=== PATIENT | male | born 1990 | race Hispanic/Latino ===

== ENCOUNTER 2019-06-06 18:28 | Inpatient (IN) | payer OTHER ==
[~2019-06-06] VITALS: Ht 172.7 cm; Wt 89.8 kg
[2019-06-06 19:22] LABS: BASOPHILS % (AUTO) 0.3 % (0.0-5.0); LYMPHOCYTES % (AUTO) 4.6 % (21.0-51.0); MEAN CORPUSCULAR HEMOGLOBIN 29.8 pg (27.0-33.0); MEAN CORPUSCULAR HGB CONC 34.6 g/dL (32.0-36.0); MEAN CORPUSCULAR VOLUME 86.2 fL (79-99); NEUTROPHILS % (AUTO) 87.5 % (40.0-77.0); PLATELET COUNT (AUTO) 246 K/uL (130-400); RED CELL DISTRIBUTION WIDTH 11.9 % (11.0-15.5)
[2019-06-06 19:27] LABS: APPEARANCE,URINE Clear (CLEAR); BILIRUBIN,URINE Small (NEGATIVE); COLOR,URINE Dark Yellow (YELLOW); GLUCOSE, URINE (UA) Negative (NEGATIVE); KETONES,URINE >=160 mg/dL (NEGATIVE); LEUKOCYTE ESTERASE ,URINE Trace (NEGATIVE); NITRATE,URINE Negative (NEGATIVE); OCCULT BLOOD,URINE Negative (NEGATIVE); PROTEIN,URINE POS 1+ mg/dL (NEGATIVE)
[2019-06-06 19:34] LABS: CARBON DIOXIDE 23 mmol/L (21-32); CHLORIDE 94 mmol/L (101-111); CREATININE 1.3 mg/dL (0.5-1.5); GLOMERULAR FILTR. RATE CALC 70 mL/min (>60); GLUCOSE,RANDOM 109 mg/dL (70-105); POTASSIUM 3.2 mmol/L (3.5-5.1); SODIUM SERUM 133 mmol/L (136-145); UREA NITROGEN, BLOOD 14 mg/dL (7-18)
[2019-06-06 19:42] LABS: INR 1.03 (0.85-1.15); PARTIAL THROMBOPLASTIN TIME 41.9 SEC (26.3-35.5); PROTHROMBIN TIME 11.1 SEC (9.6-11.6)
[2019-06-06] MEDS ORDERED: IOHEXOL-350 75 ML VIAL IV ONE (19:42)
[2019-06-06 19:44] LABS: RBC,URINE 0-1 /HPF (0-1)
[2019-06-06 19:45] LABS: BACTERIA,URINE Rare /HPF (None Seen); SQUAMOUS EPITHELIAL CELL,UR None Seen /HPF (0-2)
[2019-06-06 19:45] LABS: RAPID GROUP A STREP NEGATIVE (NEGATIVE)
[2019-06-06 19:55] LABS: ALANINE AMINOTRANSFERASE 25 U/L (12-78); ALBUMIN 4.1 g/dL (3.5-5.0); ASPARTATE AMINOTRANSFERASE 20 U/L (10-37); BILIRUBIN,TOTAL 0.9 mg/dL (0.2-1.0); CREATINE KINASE, TOTAL 46 U/L (21-232); MYOGLOBIN 24 ng/mL (10-92); TOTAL PROTEIN, SERUM 9.4 g/dL (6.0-8.3); TROPONIN I < 0.04 ng/mL (0.00-0.06)
[2019-06-06] MEDS ORDERED: ZOSYN 3.375GM+NS 50ML 50 ML IV ONE (19:58)
[2019-06-06] MEDS ORDERED: ACETAMINOPHEN 325 MG TAB ONE (19:59)
[2019-06-06] MEDS ORDERED: POTASSIUM BICARB/CIT AC 25 MEQ TABLET.EFF ONE (20:00)
[2019-06-06] MEDS ORDERED: ONDANSETRON HCL 4 MG/2 ML VIAL ONE (20:00)
[2019-06-06] MEDS ORDERED: NITROGLYCERIN 0.4 MG SL TAB SL PRN (20:30)
[2019-06-06] MEDS ORDERED: DIPHENHYDRAMINE HCL 25 MG CAPSULE PO PRN (20:30)
[2019-06-06] MEDS ORDERED: ACETAMINOPHEN 325 MG TAB PO PRN (20:30)
[2019-06-06] MEDS ORDERED: SODIUM CHLORIDE 0.9% 1000ML 1,000 ML IV SCH (20:30)
[2019-06-06] MEDS ORDERED: POTASSIUM CHLORIDE 20MEQ/100ML 100 ML IV PRN (20:45)
[2019-06-06] MEDS ORDERED: POTASSIUM CHLORIDE 20 MEQ ERTAB PO PRN (20:45)
[2019-06-06] MEDS ORDERED: MAGNESIUM 2GM PREMIX 50ML 50 ML IV PRN (20:45)
[2019-06-06] MEDS ORDERED: LIDOCAINE HCL-MPF 1% 2ML VIAL IJ PRN (20:45)
[2019-06-06] MEDS ORDERED: POTASSIUM CHLORIDE 10% ELIXIR 20 MEQ/15 ML UDCUP PO PRN (20:45)
[2019-06-06] MEDS ORDERED: FAMOTIDINE/PF 20 MG/2 ML VIAL IV ONE (21:09)
[2019-06-06] MEDS ORDERED: IBUPROFEN 800 MG TAB PO SCH (22:00)
[2019-06-06] MEDS ORDERED: IBUPROFEN 800 MG TAB ONE (22:20)
[2019-06-06 23:06] LABS: AMPHET/METH SCREEN,URINE NEGATIVE (NEGATIVE); BARBITURATE SCREEN, URINE NEGATIVE (NEGATIVE); BENZODIAZEPINES SCREEN,URINE NEGATIVE (NEGATIVE); CANNABINOID SCREEN,URINE POSITIVE (NEGATIVE); COCAINE SCREEN,URINE POSITIVE (NEGATIVE); OPIATE SCREEN,URINE NEGATIVE (NEGATIVE); PHENCYCLIDINE SCREEN,URINE NEGATIVE (NEGATIVE)
[2019-06-06] MEDS ORDERED: SODIUM CHLORIDE 0.9% 1000ML 1,000 ML IV ONE (23:59)
[2019-06-07] VITALS (7 sets, daily range): BP systolic 125–153; BP diastolic 71–89
[2019-06-07] MEDS ORDERED: IPRATROPIUM/ALBUTEROL SULFATE 3 ML SOLUTION IH PRN (01:15)
[2019-06-07] MEDS: SODIUM CHLORIDE 0.9% 1000ML 1,000 ML IV SCH ×2 (01:30→05:44)
[2019-06-07] MEDS: FAMOTIDINE/PF 20 MG/2 ML VIAL IV SCH ×3 (01:30→20:32)
[2019-06-07] MEDS ORDERED: SODIUM CHLORIDE 3% FOR INHALATION 4 ML/AMP VIAL.NEB IH ONE ×2 (01:35→06:27)
[2019-06-07] MEDS: AZITHROMYCIN 500MG+NS 250ML 250 ML IV SCH (03:00)
[2019-06-07] MEDS: ONDANSETRON HCL 4 MG/2 ML VIAL IV PRN ×3 (03:00→14:47)
[2019-06-07] MEDS: ACETAMINOPHEN 325 MG TAB PO PRN ×2 (03:35→20:43)
[2019-06-07] MEDS ORDERED: KETOROLAC TROMETHAMINE 15MG/ML ONE (03:59)
[2019-06-07] MEDS: KETOROLAC TROMETHAMINE 15MG/ML IV SCH ×2 (04:01→14:52)
[2019-06-07] MEDS: PROMETHAZINE HCL 25 MG/ML 1ML AMPULE IM SCH (04:01)
[2019-06-07] MEDS: ZOSYN 3.375GM+NS 50ML 50 ML IV SCH ×4 (05:00→20:33)
[2019-06-07] MEDS ORDERED: IBUPROFEN 600 MG TABLET PO PRN (05:30)
[2019-06-07 06:31] LABS: HEMATOCRIT 44.5 % (42-54); MEAN CORPUSCULAR HEMOGLOBIN 29.9 pg (27.0-33.0); MEAN CORPUSCULAR HGB CONC 33.7 g/dL (32.0-36.0); MEAN CORPUSCULAR VOLUME 88.6 fL (79-99); PLATELET COUNT (AUTO) 177 K/uL (130-400); RED BLOOD CELL COUNT(AUTO) 5.02 MIL/uL (4.50-6.20); RED CELL DISTRIBUTION WIDTH 12.1 % (11.0-15.5); WHITE BLOOD COUNT (AUTO) 18.1 K/uL (4.8-10.8)
[2019-06-07 06:46] LABS: ALBUMIN 3.1 g/dL (3.5-5.0); BILIRUBIN,TOTAL 0.6 mg/dL (0.2-1.0); CREATININE 1.1 mg/dL (0.5-1.5); MAGNESIUM 1.7 mg/dL (1.80-2.40); POTASSIUM 3.5 mmol/L (3.5-5.1); TOTAL PROTEIN, SERUM 7.3 g/dL (6.0-8.3)
[2019-06-07 08:28] LABS: BAND NEUTROPHILS % (MANUAL) 11 % (0-2); BASOPHILS % (MANUAL) 1 % (0-2); LYMPHOCYTES % (MANUAL) 4 % (22-44); MAN.DIFF COMMENT-IMPRESSION MANUAL DIFFERENTIAL; MONOCYTES % (MANUAL) 8 % (2-9); PLATELET MORPHOLOGY COMMENT ADEQUATE; REACTIVE LYMPHOCYTES 1 % (0-0); SEGMENTED NEUTROPHILS % 75 % (40-70)
[2019-06-07] MEDS: ENOXAPARIN SODIUM 30 MG/0.3 ML SQ SCH (08:59)
--- NOTE | 2019-06-07 12:37 | NUR ---
DCP CM met with pt discussed dc plans. Pt is independent prior to admission, lives at home w/family members. Denies any equipments/services. Feels safe to go back home, still drives, family able to assist with transportation and needs as necessary. DC plan to home once stable. CM to cont to follow up. Addendum: 06/07/19 at 1238 by SOL GREGG LVN CM Amended: Links added.
[2019-06-08] MEDS: AZITHROMYCIN 500MG+NS 250ML 250 ML IV SCH (00:58)
[2019-06-08] MEDS: KETOROLAC TROMETHAMINE 15MG/ML IV SCH (00:59)
[2019-06-08 03:40] VITALS: BP 120/70
[2019-06-08] MEDS: PROMETHAZINE HCL 25 MG/ML 1ML AMPULE IM SCH (04:00)
[2019-06-08 05:09] LABS: BASOPHILS % (AUTO) 0.2 % (0.0-5.0); EOSINOPHILS % (AUTO) 0.2 % (0.0-8.0); HEMATOCRIT 42.7 % (42-54); LYMPHOCYTES % (AUTO) 13.6 % (21.0-51.0); MEAN CORPUSCULAR HEMOGLOBIN 29.7 pg (27.0-33.0); MEAN CORPUSCULAR VOLUME 90.1 fL (79-99); MONOCYTES % (AUTO) 8.7 % (3.0-13.0); NEUTROPHILS % (AUTO) 76.8 % (40.0-77.0); PLATELET COUNT (AUTO) 161 K/uL (130-400); RED BLOOD CELL COUNT(AUTO) 4.74 MIL/uL (4.50-6.20); WHITE BLOOD COUNT (AUTO) 13.2 K/uL (4.8-10.8)
[2019-06-08 05:36] LABS: ALBUMIN 2.7 g/dL (3.5-5.0); BILIRUBIN,TOTAL 0.4 mg/dL (0.2-1.0); POTASSIUM 3.6 mmol/L (3.5-5.1); TOTAL PROTEIN, SERUM 6.9 g/dL (6.0-8.3)
[2019-06-08] MEDS: SODIUM CHLORIDE 0.9% 1000ML 1,000 ML IV SCH ×3 (05:40→20:16)
[2019-06-08] MEDS: ZOSYN 3.375GM+NS 50ML 50 ML IV SCH ×3 (05:40→20:04)
[2019-06-08] MEDS: KETOROLAC TROMETHAMINE 15MG/ML IV PRN ×2 (07:26→14:54)
[2019-06-08] MEDS: ONDANSETRON HCL 4 MG/2 ML VIAL IV PRN (07:26)
[2019-06-08 07:28] VITALS: BP 132/91
[2019-06-08] MEDS: ENOXAPARIN SODIUM 30 MG/0.3 ML SQ SCH (09:16)
[2019-06-08] MEDS: FAMOTIDINE/PF 20 MG/2 ML VIAL IV SCH ×2 (09:16→20:04)
[2019-06-08 10:49] VITALS: BP 118/67
[2019-06-08 15:51] VITALS: BP 119/58
[2019-06-08 19:10] VITALS: BP 124/66
[2019-06-08] MEDS: ACETAMINOPHEN 325 MG TAB PO PRN (23:28)
[2019-06-09 00:18] VITALS: BP 136/81
[2019-06-09] MEDS: AZITHROMYCIN 500MG+NS 250ML 250 ML IV SCH (01:28)
[2019-06-09] MEDS: PROMETHAZINE HCL 25 MG/ML 1ML AMPULE IM SCH (03:02)
[2019-06-09] MEDS: KETOROLAC TROMETHAMINE 15MG/ML IV SCH (03:02)
[2019-06-09 04:04] VITALS: BP 121/93
[2019-06-09 05:13] LABS: BASOPHILS % (AUTO) 0.4 % (0.0-5.0); EOSINOPHILS % (AUTO) 0.5 % (0.0-8.0); HEMATOCRIT 42.6 % (42-54); LYMPHOCYTES % (AUTO) 18.2 % (21.0-51.0); MEAN CORPUSCULAR HEMOGLOBIN 30.4 pg (27.0-33.0); MEAN CORPUSCULAR VOLUME 89.3 fL (79-99); MONOCYTES % (AUTO) 11.7 % (3.0-13.0); NEUTROPHILS % (AUTO) 68.7 % (40.0-77.0); PLATELET COUNT (AUTO) 177 K/uL (130-400); RED BLOOD CELL COUNT(AUTO) 4.77 MIL/uL (4.50-6.20); RED CELL DISTRIBUTION WIDTH 11.9 % (11.0-15.5); WHITE BLOOD COUNT (AUTO) 10.4 K/uL (4.8-10.8)
[2019-06-09] MEDS: ZOSYN 3.375GM+NS 50ML 50 ML IV SCH ×2 (05:27→12:06)
[2019-06-09] MEDS: SODIUM CHLORIDE 0.9% 1000ML 1,000 ML IV SCH ×2 (05:27→12:06)
[2019-06-09 05:52] LABS: ALBUMIN 2.8 g/dL (3.5-5.0); BILIRUBIN,TOTAL 0.3 mg/dL (0.2-1.0); POTASSIUM 3.6 mmol/L (3.5-5.1); TOTAL PROTEIN, SERUM 7.2 g/dL (6.0-8.3)
[2019-06-09] MEDS: KETOROLAC TROMETHAMINE 15MG/ML IV PRN ×2 (06:33→12:32)
[2019-06-09 07:58] VITALS: BP 122/65
[2019-06-09] MEDS: ENOXAPARIN SODIUM 30 MG/0.3 ML SQ SCH ×2 (09:00→12:08)
[2019-06-09] MEDS: FAMOTIDINE/PF 20 MG/2 ML VIAL IV SCH (12:06)
[2019-06-09 12:57] VITALS: BP 102/58
[2019-06-09] MEDS ORDERED: CEPH-578 PO (14:04)
[2019-06-09] MEDS ORDERED: AZIT500T4 PO (14:04)
[2019-06-09 16:20] VITALS: BP 118/60
== END 2019-06-09 18:00 | disposition home or self-care (01) | DRG 872 ==
LOC: EDH 18:28 → EDHIP 20:23 → 3BH 06-07 00:15 → 3CH 06-07 00:19
PROVIDERS: ADMIT Hospitalist; ATTEND Hospitalist
DX: A41.9 Sepsis, unspecified organism (principal); N39.0 Urinary tract infection, site not specified; E87.1 Hypo-osmolality and hyponatremia; K56.7 Ileus, unspecified; R65.20 Severe sepsis without septic shock; K52.9 Noninfective gastroenteritis and colitis, unspecified; J20.9 Acute bronchitis, unspecified; E86.0 Dehydration; E87.6 Hypokalemia; F12.90 Cannabis use, unspecified, uncomplicated; F14.90 Cocaine use, unspecified, uncomplicated; F19.10 Other psychoactive substance abuse, uncomplicated; Z83.3 Family history of diabetes mellitus; Z82.49 Family history of ischemic heart disease and other diseases of the circulatory system
CPT/HCPCS: 36415; 71045; 74177; 80053; 80305; 81001; 82550; 83605; 83690; 83735; 83874; 84145; 84484; 85025; 85610; 85730; 87040; 87071; 87077; 87088; 87186; 87205; 87449; 87804; 87880; 93005; 94640; 94664; G0378; J0456; J1650; J1885; J2405; J2543; J3475; J3490; J7030; Q9967